=== PATIENT | female | born 1985 | race Caucasian/White ===

== ENCOUNTER 2017-09-24 17:00 | Inpatient (IN) | payer BC ==
[~2017-09-24] VITALS: Ht 154.9 cm; Wt 72.3 kg
[~2017-09-24 17:00] MED LIST: YASMIN 3 MG-0.01 TAB PO
[2017-11-04] VITALS (18 sets, daily range): BP systolic 85–124; BP diastolic 55–76; PULSE 52–97; TEMP 97–98.7
[2017-11-04] MEDS ORDERED: PRENATAL1 TA7 PO (06:30)
[2017-11-04 06:38] LABS: BASO # 0.1 (0.0-0.2); BASO % 0.6 % (0.0-2.0); EOS # 0.1 (0.0-0.7); EOS % 1.1 % (0-4.0); GRAN # 6.3 (1.4-6.5); GRAN % 61.7 % (42.2-75.2); HEMOGLOBIN 12.9 g/dl (12.5-16.0); LYMPH # 2.9 (1.2-3.4); LYMPH % 28.4 % (20.0-51.0); MEAN CELL VOLUME 90 fl (80.0-100.0); MEAN CORPUSCULAR HEMOGLOBIN 32 pg (27.0-31.0); MEAN CORPUSCULAR HGB CONC 35 g/dl (33.0-37.0); MEAN PLATELET VOLUME 10.8 fl (7.4-10.4); MONO # 0.8 (0.1-0.6); MONO % 7.6 % (1.7-9.3); PLATELET COUNT 164 K/mm3 (130-400); RED BLOOD COUNT 4.04 M/mm3 (4.10-5.30); WHITE BLOOD COUNT 10.2 K/mm3 (4.8-10.8)
[2017-11-04 06:39] LABS: HEMATOCRIT 36.5 % (37.0-47.0)
[2017-11-05 07:00] VITALS: BP 98/63; PULSE 74; TEMP 98.1
[2017-11-05 07:38] LABS: BASO % 0.4 % (0.0-2.0); EOS # 0.2 (0.0-0.7); EOS % 1.5 % (0-4.0); GRAN # 7.4 (1.4-6.5); GRAN % 69.4 % (42.2-75.2); LYMPH # 2.2 (1.2-3.4); LYMPH % 20.4 % (20.0-51.0); MEAN CELL VOLUME 92 fl (80.0-100.0); MEAN CORPUSCULAR HGB CONC 35 g/dl (33.0-37.0); MEAN PLATELET VOLUME 10.2 fl (7.4-10.4); MONO # 0.8 (0.1-0.6); MONO % 7.7 % (1.7-9.3); PLATELET COUNT 135 K/mm3 (130-400); RED BLOOD COUNT 3.61 M/mm3 (4.10-5.30); WHITE BLOOD COUNT 10.6 K/mm3 (4.8-10.8)
[2017-11-05 07:47] LABS: HEMATOCRIT 33.3 % (37.0-47.0); HEMOGLOBIN 11.5 g/dl (12.5-16.0); MEAN CORPUSCULAR HEMOGLOBIN 32 pg (27.0-31.0)
[2017-11-05] MEDS ORDERED: IBU800 M1 PO (09:29)
[2017-11-05] MEDS ORDERED: PERCOCET 325 MG1 TA2 PO (09:29)
[2017-11-05 13:38] VITALS: BP 104/70; PULSE 69; TEMP 98.6
[2017-11-05 17:03] VITALS: BP 102/58; PULSE 68; TEMP 98
[2017-11-05 20:45] VITALS: BP 103/72; PULSE 66; TEMP 98.3
[2017-11-06 08:47] VITALS: BP 110/78; PULSE 71; TEMP 98
[2017-11-06 16:07] VITALS: BP 118/80; PULSE 74; TEMP 97.6
[2017-11-06 21:28] VITALS: BP 101/68; PULSE 79; TEMP 98.1
[2017-11-07 07:45] VITALS: BP 111/79; PULSE 66; PULSE 78; TEMP 97.2
== END 2017-11-07 13:30 | disposition home or self-care (01) | DRG 766 ==
LOC: LDR 11-02 16:59 → OB 11-04 05:46 → LDR 11-04 15:13 → OB 11-07 13:30
PROVIDERS: Student in an Organized Health Care Education/Training Program
PROC: 10D00Z1 Extraction of Products of Conception, Low, Open Approach (ICD-10-PCS; principal; 2017-11-04)
DX: O32.1XX0 Maternal care for breech presentation, not applicable or unspecified (principal); Z3A.39 39 weeks gestation of pregnancy; Z37.0 Single live birth
CPT/HCPCS: J0690; J1885; J2270; J2370; J2405; J2590; J7120

== ENCOUNTER 2017-12-25 19:52 | Observation (INO) | payer BC ==
[~2017-12-25] VITALS: Ht 154.9 cm; Wt 61.9 kg
[~2017-12-25 19:52] MED LIST changes: +IBU800 M1 PO; +PERCOCET 325 MG1 TA2 PO; +PRENATAL1 TA7 PO
[2017-12-25 20:53] LABS: COLLECTION METHOD CLEAN CATCH
[2017-12-25] MEDS ORDERED: HEATHER0.35 MG PO (20:56)
[2017-12-25 20:57] LABS: BASO # 0.1 (0.0-0.2); BASO % 0.4 % (0.0-2.0); EOS # 0.1 (0.0-0.7); EOS % 0.8 % (0-4.0); GRAN # 11.1 (1.4-6.5); GRAN % 79.6 % (42.2-75.2); HEMATOCRIT 41.5 % (37.0-47.0); HEMOGLOBIN 14.3 g/dl (12.5-16.0); LYMPH # 1.5 (1.2-3.4); LYMPH % 10.5 % (20.0-51.0); MEAN CELL VOLUME 90 fl (80.0-100.0); MEAN CORPUSCULAR HEMOGLOBIN 31 pg (27.0-31.0); MEAN CORPUSCULAR HGB CONC 35 g/dl (33.0-37.0); MEAN PLATELET VOLUME 10.4 fl (7.4-10.4); MONO # 1.1 (0.1-0.6); MONO % 8.1 % (1.7-9.3); PLATELET COUNT 173 K/mm3 (130-400); RED BLOOD COUNT 4.61 M/mm3 (4.10-5.30); REDCELL DISTRIBUTION WIDTH-CV 11.5 % (11.5-14.5)
[2017-12-25 21:00] LABS: PH 6 (5-8); SQUAMOUS EPITHELIAL 0-2 /hpf; URINE APPEARANCE Clear; URINE BACTERIA None Seen /hpf; URINE BILIRUBIN Negative (NEGATIVE); URINE BLOOD 1+ (NEGATIVE); URINE COLOR Straw; URINE GLUCOSE Negative (NEGATIVE); URINE KETONE 1+ (NEGATIVE); URINE LEUKOCYTE ESTERASE Negative (NEGATIVE); URINE NITRATE Negative (NEGATIVE); URINE PROTEIN(semi-quant) Negative (NEGATIVE); URINE RBC 0-2 /hpf; URINE UROBILINOGEN Negative (NEGATIVE)
[2017-12-25 21:08] LABS: ALBUMIN 5.1 gm/dL (3.5-5.0); CREATININE, serum 0.83 mg/dL (0.52-1.25); POTASSIUM 3.8 mmol/L (3.4-5.0); TOTAL PROTEIN 8.1 gm/dL (6.4-8.2)
[2017-12-25 21:21] LABS: C-REACTIVE PROTEIN 15.3 mg/dL (0.0-0.9)
[2017-12-25 23:32] VITALS: BP 122/75; PULSE 118; TEMP 100.3
[2017-12-26] VITALS (10 sets, daily range): BP systolic 81–110; BP diastolic 56–82; PULSE 82–120; TEMP 97.8–99.6
[2017-12-26 06:41] LABS: BASO % 0.3 % (0.0-2.0); EOS # 0.1 (0.0-0.7); EOS % 0.7 % (0-4.0); GRAN # 5.5 (1.4-6.5); GRAN % 71.9 % (42.2-75.2); HEMATOCRIT 37.3 % (37.0-47.0); HEMOGLOBIN 12.4 g/dl (12.5-16.0); LYMPH # 1.4 (1.2-3.4); MEAN CELL VOLUME 91 fl (80.0-100.0); MEAN CORPUSCULAR HEMOGLOBIN 30 pg (27.0-31.0); MEAN CORPUSCULAR HGB CONC 33 g/dl (33.0-37.0); MEAN PLATELET VOLUME 10.5 fl (7.4-10.4); MONO # 0.6 (0.1-0.6); MONO % 8.3 % (1.7-9.3); PLATELET COUNT 148 K/mm3 (130-400); REDCELL DISTRIBUTION WIDTH-CV 11.7 % (11.5-14.5)
[2017-12-26] MEDS ORDERED: MOTRIN 600600 MG/TAB PO (11:25)
[2017-12-26] MEDS ORDERED: AMOXICILLIN 8751 TAB PO (11:25)
[2017-12-26] MEDS ORDERED: PERCOCET 325 MG1 TA2 PO (11:25)
== END 2017-12-26 15:35 | disposition home or self-care (01) ==
LOC: COL.ER 19:52 → SURG 22:29
PROVIDERS: Emergency Medicine
DX: K35.80 Unspecified acute appendicitis (principal); K38.1 Appendicular concretions; Z82.49 Family history of ischemic heart disease and other diseases of the circulatory system
CPT/HCPCS: G0378; J1100; J1885; J2270; J2405; J2543; J2704; J3010; J7030; Q9967

== ENCOUNTER → 2018-02-08 | Outpatient (CLI) | payer BC ==
[~2018-02-08] MED LIST changes: +AMOXICILLIN 8751 TAB PO; +HEATHER0.35 MG PO; +MOTRIN 600600 MG/TAB PO
== END ==
LOC: LDRO 10:57
DX: Z39.1 Encounter for care and examination of lactating mother (principal); Z71.89 Other specified counseling

== ENCOUNTER → 2020-10-04 | Outpatient (CLI) | payer BC ==
[~2020-10-04] MED LIST changes: +PROBIOTIC BLEN1 EACH PO
== END ==
LOC: ZCOL.LAB 08:00
DX: Z20.828 Contact with and (suspected) exposure to other viral communicable diseases (principal)

== ENCOUNTER 2020-10-09 05:37 | Inpatient (IN) | payer BC ==
[2020-10-09] VITALS (20 sets, daily range): BP systolic 83–123; BP diastolic 58–83; PULSE 62–89; TEMP 98–98.2
[~2020-10-09] VITALS: Ht 154.9 cm; Wt 76.4 kg
[~2020-10-09 05:37] MED LIST changes: -PROBIOTIC BLEN1 EACH PO
--- NOTE | 2020-10-09 06:30 | NUR ---
0630- RN at bedside. Plan of care reviewed. Bedside report received. Assessment completed. 0800- Dr. Rey on unit and patient updated on plan of care. Verbalizes understanding. 1015- Patient ambulatory to OR suite. 1120- Patient to PACU. Monitors appied. Fundus firm and midline. Large amount of lochia noted. Clots expressed. 1139- Large amount of lochia with clots expressed. Fundus firm and midline. Dr. Rey on unit and notified. See flowsheets, EMAR, and physician notification. 1200- Fundus firm, midline, with small amount of lochia. Monitors off. Patient to room 209 via bed. Oriented to room and plan of care.
[2020-10-09 06:49] LABS: BASO % 0.3 % (0.0-2.0); EOS # 0.1 (0.0-0.7); EOS % 1.5 % (0-4.0); GRAN # 5.9 (1.4-6.5); GRAN % 65.3 % (42.2-75.2); HEMOGLOBIN 12.6 g/dl (12.5-16.0); LYMPH # 2.1 (1.2-3.4); LYMPH % 23.6 % (20.0-51.0); MEAN CELL VOLUME 89 fl (80.0-100.0); MEAN CORPUSCULAR HEMOGLOBIN 31 pg (27.0-31.0); MEAN CORPUSCULAR HGB CONC 35 g/dl (33.0-37.0); MEAN PLATELET VOLUME 10.9 fl (7.4-10.4); MONO # 0.8 (0.1-0.6); MONO % 8.7 % (1.7-9.3); PLATELET COUNT 146 K/mm3 (130-400); RED BLOOD COUNT 4.05 M/mm3 (4.10-5.30)
[2020-10-09] MEDS ORDERED: PROBIOTIC BLEN1 EACH PO (06:59)
[2020-10-10 01:27] VITALS: BP 100/64; PULSE 61; TEMP 97.2
[2020-10-10 07:00] VITALS: BP 109/78; PULSE 67; TEMP 97.8
--- NOTE | 2020-10-10 09:09 | NUR ---
Initial visit; Parents thanked for offering congratulations for the of their son. Naturalist thanked family for choosing [facility] and offered God's blessings.
[2020-10-10 12:30] VITALS: BP 111/81; PULSE 65; TEMP 97.3
[2020-10-10 16:25] VITALS: BP 100/72; PULSE 73; TEMP 97.9
[2020-10-10 19:10] VITALS: BP 126/85; PULSE 69; TEMP 98.5
[2020-10-11] MEDS ORDERED: IBU800 M1 PO (08:23)
[2020-10-11] MEDS ORDERED: PERCOCET 325 MG1 TA2 PO (08:23)
[2020-10-11 08:38] VITALS: BP 111/76; PULSE 79; TEMP 98
== END 2020-10-11 14:05 | disposition home or self-care (01) | DRG 787 ==
LOC: OB 05:37
PROVIDERS: ADMIT Student in an Organized Health Care Education/Training Program
PROC: 10D00Z1 Extraction of Products of Conception, Low, Open Approach (ICD-10-PCS; principal; 2020-10-09)
DX: O34.211 Maternal care for low transverse scar from previous cesarean delivery (principal); O99.354 Diseases of the nervous system complicating childbirth; G43.909 Migraine, unspecified, not intractable, without status migrainosus; K21.9 Gastro-esophageal reflux disease without esophagitis; O99.62 Diseases of the digestive system complicating childbirth; Z3A.39 39 weeks gestation of pregnancy; Z37.0 Single live birth
CPT/HCPCS: J0690; J1100; J1885; J2210; J2370; J2405; J2590; J7120